=== PATIENT | female | born 2000 | race African-American/Black ===

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

== ENCOUNTER 2021-09-26 14:22 | Emergency (ER) | payer MEDICAID ==
[~2021-09-26] VITALS: Ht 167.6 cm; Wt 52.3 kg
[2021-09-26 14:29] VITALS: BP 129/75
[2021-09-26] MEDS ORDERED: HYDR-3972 PO (16:25)
[2021-09-26] MEDS ORDERED: AMOX-117 PO (16:25)
== END 2021-09-26 16:46 | disposition home or self-care (01) ==
LOC: ER 14:22
DX: K04.7 Periapical abscess without sinus (principal); F12.10 Cannabis abuse, uncomplicated
CPT/HCPCS: 99283